=== PATIENT | female | born 1955 | race Two or more races ===

== ENCOUNTER → 2017-11-03 | Emergency (ER) | payer OTHER ==
[~2017-11-03] VITALS: Ht 154.9 cm; Wt 90.7 kg
== END | disposition home or self-care (01) ==
LOC: ER 23:33
DX: S01.81XA Laceration without foreign body of other part of head, initial encounter (principal); W18.39XA Other fall on same level, initial encounter; Y93.89 Activity, other specified; Y92.89 Other specified places as the place of occurrence of the external cause; Y99.8 Other external cause status